=== PATIENT | male | born 1930 | race Caucasian/White ===

== ENCOUNTER → 2016-11-03 | Outpatient (CLI) | payer MEDICARE, BC ==
[2016-11-03 14:46] LABS: APPEARANCE,URINE SLIGHTLY-CLOUDY; BILIRUBIN,URINE NEGATIVE (NEGATIVE); GLUCOSE, URINE NEGATIVE (NEGATIVE); KETONES,URINE NEGATIVE (NEGATIVE); LEUKOCYTE ESTERASE,URINE NEGATIVE (NEGATIVE); NITRITE,URINE NEGATIVE (NEGATIVE); PROTEIN,URINE NEGATIVE (NEGATIVE); URINE SPECIFIC GRAVITY 1.005; UROBILINOGEN,URINE NEGATIVE mg/dL (<2.0)
[2016-11-04 14:20] LABS: MICROALBUMIN URINE <3.0 ug/mL (Not Estab.)
== END ==
LOC: OD 13:24
PROVIDERS: ATTEND Internal Medicine Cardiovascular Disease
DX: E11.9 Type 2 diabetes mellitus without complications (principal); N18.9 Chronic kidney disease, unspecified
CPT/HCPCS: 36415; 81001; 82043; 82570; 83036

== ENCOUNTER → 2017-03-30 | Outpatient (CLI) | payer MEDICARE, BC ==
[2017-03-30 15:05] LABS: ALANINE AMINOTRANSFERASE 17 U/L (21-72); ALBUMIN 4.4 g/dL (3.5-5.0); ALKALINE PHOSPHATASE 83 U/L (38-126); ANION GAP 10 (5-19); ASPARTATE AMINO TRANSFERASE 21 U/L (17-59); BILIRUBIN,TOTAL 0.7 mg/dL (0.2-1.3); BLOOD UREA NITROGEN 22 mg/dL (7-20); CALCIUM 9.5 mg/dL (8.4-10.2); CARBON DIOXIDE 27 mmol/L (22-30); CHLORIDE 101 mmol/L (98-107); GLUCOSE 104 mg/dL (75-110); POTASSIUM 4.7 mmol/L (3.6-5.0); SODIUM 138.2 mmol/L (137-145); TOTAL PROTEIN 7.1 g/dL (6.3-8.2)
== END ==
LOC: OD 14:09
PROVIDERS: ATTEND Internal Medicine Cardiovascular Disease
DX: I50.9 Heart failure, unspecified (principal); I48.91 Unspecified atrial fibrillation; E11.9 Type 2 diabetes mellitus without complications
CPT/HCPCS: 36415; 80048; 80076; 83036; 83735; 83880

== ENCOUNTER → 2017-05-27 | Outpatient (CLI) | payer MEDICARE, BC ==
[2017-05-27 16:40] LABS: ANION GAP 10 (5-19); BLOOD UREA NITROGEN 46 mg/dL (7-20); CALCIUM 9.8 mg/dL (8.4-10.2); CARBON DIOXIDE 32 mmol/L (22-30); CHLORIDE 96 mmol/L (98-107); GLUCOSE 101 mg/dL (75-110); POTASSIUM 5.2 mmol/L (3.6-5.0); SODIUM 137.8 mmol/L (137-145)
== END ==
LOC: OD 15:00
PROVIDERS: ATTEND Internal Medicine Cardiovascular Disease
DX: I50.22 Chronic systolic (congestive) heart failure (principal); R06.02 Shortness of breath; N18.3 Chronic kidney disease, stage 3 (moderate); I48.0 Paroxysmal atrial fibrillation
CPT/HCPCS: 36415; 80048; 83735; 83880

== ENCOUNTER → 2017-06-23 | Outpatient (CLI) | payer MEDICARE, BC ==
[2017-06-23 16:47] LABS: ANION GAP 11 (5-19); BLOOD UREA NITROGEN 33 mg/dL (7-20); CALCIUM 9.3 mg/dL (8.4-10.2); CARBON DIOXIDE 29 mmol/L (22-30); CHLORIDE 102 mmol/L (98-107); GLUCOSE 126 mg/dL (75-110); POTASSIUM 4.6 mmol/L (3.6-5.0); SODIUM 141.6 mmol/L (137-145)
== END ==
LOC: OD 15:08
PROVIDERS: ATTEND Internal Medicine Cardiovascular Disease
DX: I50.22 Chronic systolic (congestive) heart failure (principal); N18.3 Chronic kidney disease, stage 3 (moderate); R06.02 Shortness of breath
CPT/HCPCS: 36415; 80048; 83880

== ENCOUNTER → 2017-08-19 | Outpatient (CLI) | payer MEDICARE, BC ==
[2017-08-19 09:52] LABS: ANION GAP 11 (5-19); BLOOD UREA NITROGEN 27 mg/dL (7-20); CALCIUM 9.1 mg/dL (8.4-10.2); CARBON DIOXIDE 27 mmol/L (22-30); CHLORIDE 103 mmol/L (98-107); GLUCOSE 113 mg/dL (75-110); SODIUM 140.6 mmol/L (137-145)
== END ==
LOC: LAB 09:06
PROVIDERS: ATTEND Internal Medicine Cardiovascular Disease
DX: I50.22 Chronic systolic (congestive) heart failure (principal); R06.02 Shortness of breath; N18.3 Chronic kidney disease, stage 3 (moderate)
CPT/HCPCS: 36415; 80048; 83880

== ENCOUNTER → 2017-09-18 | Outpatient (CLI) | payer MEDICARE, BC ==
[2017-09-18 09:24] LABS: ALANINE AMINOTRANSFERASE 23 U/L (21-72); ALBUMIN 3.8 g/dL (3.5-5.0); ALKALINE PHOSPHATASE 74 U/L (38-126); ANION GAP 9 (5-19); ASPARTATE AMINO TRANSFERASE 22 U/L (17-59); BILIRUBIN,DIRECT 0.2 mg/dL (0.0-0.4); BILIRUBIN,TOTAL 0.8 mg/dL (0.2-1.3); BLOOD UREA NITROGEN 21 mg/dL (7-20); CALCIUM 9.3 mg/dL (8.4-10.2); CARBON DIOXIDE 27 mmol/L (22-30); CHLORIDE 104 mmol/L (98-107); CHOLESTEROL 138.76 mg/dL (0-200); GLUCOSE 114 mg/dL (75-110); POTASSIUM 4.9 mmol/L (3.6-5.0); SODIUM 139.8 mmol/L (137-145); TOTAL PROTEIN 6.8 g/dL (6.3-8.2); TRIGLYCERIDES 97 mg/dL (<150)
[2017-09-18 09:38] LABS: DIRECT LDL 51 mg/dL (<100)
== END ==
LOC: LAB 08:35
PROVIDERS: ATTEND Internal Medicine Cardiovascular Disease
DX: E11.29 Type 2 diabetes mellitus with other diabetic kidney complication (principal); N18.3 Chronic kidney disease, stage 3 (moderate); E78.00 Pure hypercholesterolemia, unspecified; E03.2 Hypothyroidism due to medicaments and other exogenous substances; R06.02 Shortness of breath; Z79.899 Other long term (current) drug therapy
CPT/HCPCS: 36415; 80048; 80061; 80076; 83036; 83880; 84443

== ENCOUNTER → 2017-11-02 | Outpatient (CLI) | payer MEDICARE, BC ==
[2017-11-02 12:00] LABS: ANION GAP 7 (5-19); BLOOD UREA NITROGEN 20 mg/dL (7-20); CALCIUM 9.4 mg/dL (8.4-10.2); CARBON DIOXIDE 30 mmol/L (22-30); CHLORIDE 101 mmol/L (98-107); GLUCOSE 120 mg/dL (75-110); POTASSIUM 4.8 mmol/L (3.6-5.0); SODIUM 138.1 mmol/L (137-145)
== END ==
LOC: LAB 11:35
PROVIDERS: ATTEND Internal Medicine Cardiovascular Disease
DX: I50.22 Chronic systolic (congestive) heart failure (principal); N18.3 Chronic kidney disease, stage 3 (moderate); R06.02 Shortness of breath
CPT/HCPCS: 36415; 80048; 83880

== ENCOUNTER → 2018-01-11 | Outpatient (CLI) | payer MEDICARE, BC ==
[2018-01-11 15:18] LABS: ALBUMIN 4.1 g/dL (3.5-5.0); ANION GAP 11 (5-19); BLOOD UREA NITROGEN 27 mg/dL (7-20); CALCIUM 9.4 mg/dL (8.4-10.2); CARBON DIOXIDE 30 mmol/L (22-30); CHLORIDE 96 mmol/L (98-107); GLUCOSE 174 mg/dL (75-110); PHOSPHORUS 3.5 mg/dL (2.5-4.5); POTASSIUM 4.7 mmol/L (3.6-5.0); SODIUM 137.2 mmol/L (137-145)
== END ==
LOC: LAB 14:32
PROVIDERS: ATTEND Internal Medicine Cardiovascular Disease
DX: I50.9 Heart failure, unspecified (principal); N18.9 Chronic kidney disease, unspecified; E11.9 Type 2 diabetes mellitus without complications
CPT/HCPCS: 36415; 80069; 83036; 83880

== ENCOUNTER → 2018-01-26 | Outpatient (CLI) | payer MEDICARE, BC ==
[2018-01-26 10:36] LABS: ALANINE AMINOTRANSFERASE 14 U/L (21-72); ALBUMIN 3.8 g/dL (3.5-5.0); ALKALINE PHOSPHATASE 71 U/L (38-126); ASPARTATE AMINO TRANSFERASE 19 U/L (17-59); BILIRUBIN,DIRECT 0.2 mg/dL (0.0-0.4); BILIRUBIN,TOTAL 0.9 mg/dL (0.2-1.3); TOTAL PROTEIN 6.7 g/dL (6.3-8.2)
[2018-01-26 10:52] LABS: FREE T4 (FREE THYROXINE) 1.85 ng/dL (0.78-2.19)
[2018-01-26 11:06] LABS: THYROID STIMULATING HORMONE 1.76 uIU/mL (0.47-4.68)
== END ==
LOC: LAB 09:45
PROVIDERS: ATTEND Internal Medicine Cardiovascular Disease
DX: I50.22 Chronic systolic (congestive) heart failure (principal); I48.91 Unspecified atrial fibrillation; Z79.899 Other long term (current) drug therapy; N18.3 Chronic kidney disease, stage 3 (moderate); E03.9 Hypothyroidism, unspecified; Z12.5 Encounter for screening for malignant neoplasm of prostate
CPT/HCPCS: 36415; 84439; 84443; 80076; G0103

== ENCOUNTER → 2018-07-19 | Outpatient (CLI) | payer MEDICARE, BC ==
[2018-07-19 12:04] LABS: ANION GAP 10 (5-19); BLOOD UREA NITROGEN 22 mg/dL (7-20); CALCIUM 9.7 mg/dL (8.4-10.2); CARBON DIOXIDE 29 mmol/L (22-30); CHLORIDE 101 mmol/L (98-107); GLUCOSE 124 mg/dL (75-110); POTASSIUM 5.1 mmol/L (3.6-5.0)
== END ==
LOC: LAB 11:20
PROVIDERS: ATTEND Internal Medicine Cardiovascular Disease
DX: E87.5 Hyperkalemia (principal)
CPT/HCPCS: 36415; 80048

== ENCOUNTER → 2018-09-01 | Outpatient (CLI) | payer MEDICARE, BC ==
[2018-09-01 09:50] LABS: ANION GAP 5 (5-19); BLOOD UREA NITROGEN 33 mg/dL (7-20); CALCIUM 9.2 mg/dL (8.4-10.2); CARBON DIOXIDE 29 mmol/L (22-30); CHLORIDE 103 mmol/L (98-107); GLUCOSE 113 mg/dL (75-110); POTASSIUM 4.9 mmol/L (3.6-5.0)
== END ==
LOC: LAB 09:01
PROVIDERS: ATTEND Internal Medicine Cardiovascular Disease
DX: I50.22 Chronic systolic (congestive) heart failure (principal); R06.02 Shortness of breath; E87.5 Hyperkalemia; N18.3 Chronic kidney disease, stage 3 (moderate); E03.2 Hypothyroidism due to medicaments and other exogenous substances
CPT/HCPCS: 36415; 80048; 83880; 84443

== ENCOUNTER → 2019-06-27 | Outpatient (CLI) | payer MEDICARE, BC ==
[2019-06-27 08:58] LABS: CHOLESTEROL 153.39 mg/dL (0-200); TRIGLYCERIDES 77 mg/dL (<150)
[2019-06-27 09:09] LABS: DIRECT LDL 75 mg/dL (<100)
[2019-06-27 12:44] LABS: HEMATOCRIT 39.7 % (37.9-51.0); HEMOGLOBIN 13.8 g/dL (13.5-17.0); MEAN CORPUSCULAR HEMOGLOBIN 35.8 pg (27.0-33.4); MEAN CORPUSCULAR HGB CONC 34.7 g/dL (32.0-36.0); MEAN CORPUSCULAR VOLUME 103 fl (80-97); PLATELET COUNT 144 10^3/uL (150-450); RED BLOOD COUNT 3.85 10^6/uL (4.35-5.55); RED CELL DISTRIBUTION WIDTH 13.6 % (11.5-14.0); WHITE BLOOD COUNT 4.6 10^3/uL (4.0-10.5)
[2019-06-27 12:51] LABS: ALBUMIN 3.9 g/dL (3.5-5.0); ALKALINE PHOSPHATASE 79 U/L (38-126); ANION GAP 6 (5-19); ASPARTATE AMINO TRANSFERASE 19 U/L (17-59); BLOOD UREA NITROGEN 30 mg/dL (7-20); CALCIUM 9.4 mg/dL (8.4-10.2); CARBON DIOXIDE 29 mmol/L (22-30); CHLORIDE 101 mmol/L (98-107); GLUCOSE 103 mg/dL (75-110); POTASSIUM 4.8 mmol/L (3.6-5.0); TOTAL PROTEIN 7.2 g/dL (6.3-8.2)
== END ==
LOC: OD 07:20
PROVIDERS: ATTEND Internal Medicine Cardiovascular Disease
DX: E03.2 Hypothyroidism due to medicaments and other exogenous substances (principal); I50.22 Chronic systolic (congestive) heart failure; E13.9 Other specified diabetes mellitus without complications; I25.10 Atherosclerotic heart disease of native coronary artery without angina pectoris
CPT/HCPCS: 36415; 80048; 80061; 80076; 83036; 83735; 83880; 84443; 85027

== ENCOUNTER → 2019-09-17 | Outpatient (CLI) | payer MEDICARE, BC ==
[2019-09-17 11:01] LABS: APPEARANCE,URINE CLEAR; BILIRUBIN,URINE NEGATIVE (NEGATIVE); COLOR,URINE YELLOW; GLUCOSE, URINE NEGATIVE (NEGATIVE); KETONES,URINE NEGATIVE (NEGATIVE); LEUKOCYTE ESTERASE,URINE NEGATIVE (NEGATIVE); NITRITE,URINE NEGATIVE (NEGATIVE); PROTEIN,URINE NEGATIVE (NEGATIVE); URINE SPECIFIC GRAVITY 1.013; UROBILINOGEN,URINE NEGATIVE mg/dL (<2.0)
[2019-09-17 11:09] LABS: HEMATOCRIT 40.5 % (37.9-51.0); HEMOGLOBIN 13.8 g/dL (13.5-17.0); MEAN CORPUSCULAR HEMOGLOBIN 35.5 pg (27.0-33.4); MEAN CORPUSCULAR HGB CONC 34.1 g/dL (32.0-36.0); MEAN CORPUSCULAR VOLUME 104 fl (80-97); PLATELET COUNT 136 10^3/uL (150-450); RED CELL DISTRIBUTION WIDTH 13.3 % (11.5-14.0); WHITE BLOOD COUNT 4.8 10^3/uL (4.0-10.5)
[2019-09-17 11:28] LABS: ALBUMIN 4.2 g/dL (3.5-5.0); ALKALINE PHOSPHATASE 75 U/L (38-126); ANION GAP 8 (5-19); ASPARTATE AMINO TRANSFERASE 22 U/L (17-59); BILIRUBIN,TOTAL 1.1 mg/dL (0.2-1.3); BLOOD UREA NITROGEN 26 mg/dL (7-20); CALCIUM 9.4 mg/dL (8.4-10.2); CARBON DIOXIDE 27 mmol/L (22-30); CHLORIDE 100 mmol/L (98-107); GLUCOSE 110 mg/dL (75-110); POTASSIUM 4.8 mmol/L (3.6-5.0); TOTAL PROTEIN 7.3 g/dL (6.3-8.2)
[2019-09-19 15:36] LABS: CHOLESTEROL 164.01 mg/dL (0-200); TRIGLYCERIDES 77 mg/dL (<150)
[2019-09-19 15:48] LABS: DIRECT LDL 71 mg/dL (<100)
== END ==
LOC: OD 09:26
PROVIDERS: ATTEND Internal Medicine Cardiovascular Disease
DX: E78.00 Pure hypercholesterolemia, unspecified (principal); I50.22 Chronic systolic (congestive) heart failure; I48.91 Unspecified atrial fibrillation; Z79.01 Long term (current) use of anticoagulants; Z79.899 Other long term (current) drug therapy
CPT/HCPCS: 36415; 80048; 80061; 80076; 81001; 83735; 83880; 84443; 85027; 85730

== ENCOUNTER → 2019-12-20 | Outpatient (CLI) | payer MEDICARE, BC ==
--- OUTSIDE RECORDS SUMMARY | 2019-12-20 15:16 | XMS REPORT ---
:1930 [facility] [address] [place] [id number] Care Team Providers Name Role Phone Susan CARRASCO Primary Care Physician Unavailable LEXIE KENT Attending Clinician Unavailable MEAGHAN WATTERS Attending Clinician Unavailable SUMA ROGERS Attending Clinician Unavailable JOSE G Attending Clinician Unavailable Allergies, Adverse Reactions, Alerts Allergy Name Allergy Status Severity Reaction(s) Onset Inactive Treat ing Comments Type Date Date Clinician Ondansetron Propensity Active Moderate Vomiting Hcl (Pf) to adverse 4-03 reactions 00:00: to drug 00 Melquiades Propensity Active Cough Inhibitors to adverse reactions to drug Carvedilol Propensity Active Severe Other (See Reaction to adverse Comments) - reactions weakne ss to drug Sotalol Propensity Active Other (See Re action to adverse Comments) - e xtreme reactions fatigu e to drug Midazolam Propensity Active Vomiting to adverse reactions to drug Medications Ordered Filled Start Stop Current Ordering Indication Dosage Frequency Signature Comments Components Medication Medication Date Date Medication? Clinician (SIG) Name Name levothyroxi No 50ug QD Take 1 ne 9-25 tablet (50 (SYNTHROID) 00:00: mcg total) 50 MCG 00 by mouth tablet once daily sacubitriL- No 1{tbl} Q12H Take 1 valsartan 8-04 tablet by (ENTRESTO) 00:00: mouth 24-26 mg 00 every 12 tablet (twelve) hours ENTRESTO 2019- 2020- No TAKE 1 24-26 mg 8-04 08-04 TABLET BY tablet 00:00: 00:00 MOUTH 00 :00 EVERY 12 HOURS eplerenone 2020- No 12.5mg [id number] Take 0.5 (INSPRA) 25 4-22 04-22 [id number] tablets MG tablet 00:00: 23:59 3W (12.5 mg 00 :00 total) by mouth every Thursday, Thursday, and Thursday ELIQUIS 5 2019- Yes TAKE 1 mg tablet 4-15 TABLET BY 00:00: MOUTH 00 EVERY 12 HOURS apixaban 2020- No 5mg Q12H Take 1 (ELIQUIS) 5 2-05 04-15 tablet (5 mg tablet 00:00: 00:00 mg total) 00 :00 by mouth every 12 (twelve) hours finasteride 2018-02 Yes [id number] One tab po (PROSCAR) 5 2-04 01 daily mg tablet 00:00: 00 metoprolol 2020- No 25mg QD Take 1 succinate 9-16 09-15 tablet (25 (TOPROL-XL) 00:00: 23:59 mg total) 25 MG XL 00 :00 by mouth tablet once daily sacubitril- 2020- No 1{tbl} Q12H Take 1 valsartan 7-19 08-04 tablet by (ENTRESTO) 00:00: 00:00 mouth 24-26 mg 00 :00 every 12 tablet (twelve) hours levothyroxi 2019- No Take 1 po ne 6-24 09-25 six days a (SYNTHROID, 00:00: 00:00 week only LEVOTHROID) 00 :00 50 MCG tablet eplerenone 2019- No 12.5mg QD Take 0.5 (INSPRA) 25 2-15 02-15 tablets MG tablet 00:00: 23:59 (12.5 mg 00 :00 total) by mouth once daily Aspirin Yes 81mg 28 14:09: 47 Voltaren Yes 1% Apply 4 1-28 gram(s) 4 11:58: times 08 daily PRN to affected area finasteride 2017-02 2019- No [id number] One tab po (PROSCAR) 5 1-21 12-04 01 daily mg tablet 00:00: 00:00 00 :00 levothyroxi 2019- No Take 1 ne 8- 03-19 pill 6 (SYNTHROID, 00:00: 00:00 days a LEVOTHROID) 00 :00 week and 75 MCG NONE on tablet Sundays on an empty stomach with a glass of water at least 30-60 minutes before breakfast. sacubitril- 2019- No 1{tbl} Q12H Take 1 valsartan 09-17 07-18 tablet by (ENTRESTO) 00:00: 00:00 mouth 24-26 mg 00 :00 every 12 tablet (twelve) hours. atorvastati Yes 20mg QD Take 20 mg n (LIPITOR) 4-20 by mouth 20 MG 00:00: nightly tablet 00 metoprolol 2018- No 50mg QD Take 50 mg succinate 05-15-16 by mouth (TOPROL-XL) 00:00: 00:00 every 50 MG XL 00 :00 morning. tablet AMIOdarone Yes 100mg QD Take 0.5 (PACERONE) 4-22 tablets 200 MG 00:00: (100 mg tablet 00 total) by mouth daily. LASIX 20 mg 2012-02 Yes 20mg QD Take 1 tablet 2-12 tablet (20 00:00: mg total) 00 by mouth daily. eplerenone 2012-02- No 25mg QD Take 1 (INSPRA) 25 2-03 06-13 tablet (25 MG tablet 00:00: 00:00 mg total) 00 :00 by mouth daily. metoprolol 2013- No 50mg QD Take 1 succinate 1-04 01-04 tablet (50 (TOPROL-XL) 00:00: 23:59 mg total) 50 MG XL 00 :00 by mouth tablet daily. atorvastati 2015- No 1{tbl} QD 1 tab by n (LIPITOR) 4-16 11-08 mouth 40 MG 00:00: 00:00 daily tablet 00 :00 ezetimibe 2015- No 1{tbl} QD 1 tab by (ZETIA) 10 4-16 11-08 mouth mg tablet 00:00: 00:00 daily 00 :00 aspirin 325 2018- No 1{tbl} QD 1 tab by MG EC 2-20 12-17 mouth tablet 00:00: 00:00 daily 00 :00 acarbose 2016- No 2{tbl} Q.96141101 2 tab by (PRECOSE) 2-14 06-14 [id number] mouth 3 25 MG 00:00: 00:00 3D times a tablet 00 :00 day amiodarone 2012-0 2014- No .5{tbl} QD 0.5 tab by (PACERONE) 03-25 04-22 mouth 200 MG 00:00: 00:00 daily tablet 00 :00 candesartan 2010-02- No 2mg QD Take 2 mg (ATACAND) 4 03-30-25 by mouth MG tablet 00:00: 00:00 every 00 :00 morning. LASIX 20 mg 2010-02- No 1{tbl} QD 1 tab by tablet 03-30- mouth 00:00: 00:00 daily 00 :00 ascorbic 2015- No 1{tbl} QD 1 tab by acid 09-10 11-08 mouth (VITAMIN C) 00:00: 00:00 daily 500 mg TbER 00 :00 multivitami 2007-02- No 1{capsu QD 1 cap by n capsule 0-20 14 le} mouth 00:00: 00:00 daily 00 :00 ergocalcife Yes 1{tbl} QD Take 1 rol, tablet by vitamin D2, mouth 2,000 unit every Tab morning. MULTIVITAMI Yes 1{tbl} QD Take 1 N ORAL tablet by mouth once daily. acarbose Yes 50mg Q.82560926 Take 50 mg (PRECOSE) [id number] by mouth 3 25 MG 3D (three) tablet times daily with meals. ascorbic Yes 500mg QD Take 500 acid, mg by vitamin C, mouth (VITAMIN C) nightly 500 mg TbER ezetimibe Yes 10mg QD Take 10 mg (ZETIA) 10 by mouth mg tablet nightly. perflutren No 4mL 4 mL, lipid Intravenou microsphere s, Once, s Thu10/14/19 (DEFINITY) at 1130, 1.5 mL in For 1 sodium dose, chloride Radiology< 0.9% 8.5 mL br>CDU injection Definity Administra tion Protocol Leoncio ch 10mL syringe containing 1.5mL Definity syringe and 8.5mL 0.9 preservati ve-free Sodium Chloride to extension tubing. Admi nistration of 1-2 mL amounts will proceed until the sonographe r obtains evaluable imaging or until maximum amount is administer ed. If necessary, a second diluted bolus of Definity may be administer ed 30 minutes after the first injection to prolong contrast enhancemen t. The maximum total dose should not exceed 20 mL in any one patient per study
Problems Condition Condition Condition Status Onset Resolution Last Treatin g Comments Name Details Category Date Date Treatment Clinician Date Encounter Encounter [id number] Active 2018-07-14 for for 07-14 11:53:40 adjustment adjustment 00:00: of cardiac of cardiac 00 resynchroni resynchroni zation zation therapy therapy defibrillat defibrillat or (RN TRANSITIONAL-D) or (RN TRANSITIONAL-D) Chronic Chronic [id number] Active 2019-05-02 Over view: systolic systolic 08-03 14:32:13 A. 20 14 congestive congestive 00:00: Pr o-BNP heart heart 00 766 B. failure failure 2014 Pro-BNP 1,054 C. 2015 Pro-BNP 1,319 D. 2017 Pro-BNP 2,164 - started Entreo E. 2018 Pro-BNP 1,900 F. 10/2018 Pro-BNP 1,229 Hypothyroid Hypothyroid [id number] Active 2016-08-04 ism due to ism due to 08-04 14:59:38 Barby's Barby's 00:00: thyroiditis thyroiditis 00 Elevated Elevated [id number] Active 2018-03-26 Ov erview: TSH TSH 03-17 19:21:59 7: 00:00: TSH 24.3 8 00 Chronic Chronic [id number] Inactiv 2015-022018-10-29 Over view: renal renal e 03-16 18:27:35 A. 2016 impairment, impairment, 00:00: Cr 1.4, stage 2 stage 2 00 GFR 48 B . (mild) (mild) 2017 Cr 1.1, GFR >60 C. 12/2017 Cr 1,2, GFR 58 D . 2018 Cr 1.4, GFR 48 CKD CKD [id number] Active 2015-022019-10-22 Over view: (chronic (chronic - 18:57:12 A. 20 17 kidney kidney 00:00: Cr 1.4, disease) disease) 00 GFR 48 B. stage 3, stage 3, 2018 C r GFR 30-59 GFR 30-59 1.1, GFR ml/min ml/min >60 C. 12/2017 Cr 1,2, GFR 58 D . 2019 Cr 1.4, GFR 48 Cancer of Cancer of [id number] Active 2015-022016-01-16 prostate prostate 1-14 14:46:04 00:00: 00 Incomplete Incomplete [id number] Active 2015-022015-12-24 bladder bladder 0-20 15:42:03 emptying emptying 00:00: 00 Nocturia Nocturia [id number] Active 2015-07-24 6- 13:18:45 00:00: 00 Small Small [id number] Active 2014-022019-10-22 Over view: airways airways 03-12 18:56:28 A. On disease disease 00:00: Amiodaro n 00 e for VT B. 01/15/20 1 3: PFT's : FVC 4.29 , FEV1 2.75, FEV1-FVC 64, TLC 6.54, VC 4.45, DLCO 18. 3 C. 01/15/20 1 3: CXR: Normal heart an d lungs D. 01/2014: PFT's: FVC 4.53 , FEV1 2.98, TL C 6.30, DLCO 17. 7 E. 01/2015: PFT's: FEV1 83% , MVV 100% , VCMAX 93%, LAURA O 74% F. 01/2016 PFTs: FEV1 81% , MVV 95%, VC 91%, DLCO 71% G. 01/2017 PFTs: FEV1 82% , MVV 87%, DLCO 69% H. 2018 PFTs: FEV1 84% , MVV 100% , DLCO 66% I. 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 2013-03-04 a of left a of left 03-04 22:04:51 eye eye 00:00: 00 Sensorineur Sensorineur [id number] Active 2012-08-27 al hearing al hearing 08-27 19:08:18 loss loss 00:00: 00 Cardiac Cardiac [id number] Active 2018-07-14 Over view: resynchroni resynchroni 03-19 11:53:17 Medtronic zation zation 00:00: Defibril l therapy therapy 00 ator defibrillat defibrillat CLARIA or (RN TRANSITIONAL-D) or (RN TRANSITIONAL-D) MR I RN TRANSITIONAL-D in place in place QUAD D F-1 [id number] S/N: [id number] H Date o f Implant: 05/13/19 1 9 CS Medtroni c PERFORMA LAV S-SHAPED 88CM [id number] S/N: [id number] V Date o f Implant: 05/13/19 1 9 RA Medtroni c 5076 CapSureF i x Novus MRI [id number] V right atrial lead implante d on 08/04/19 0 4 RV Medtroni c 6947 Sprint Quattro Secure [id number] 8 V right ventricu l ar lead implante d on 08/04/19 0 4 Potentia l loss of left ventricl e pacing due to software Issue. Interrog a tion wit h programm e r software update (SW034 Software Version 8.2) resolves issue Explante d 05/13/19 1 9 Medtroni c Deion MR I XT [id number] 6 H dual chamber ICD implante d on 12/26/15 Coronary Coronary [id number] Inactiv 2011-022017-11-28 Ov erview: artery artery e 16:11:05 a. 1989 : disease disease 00:00: AL with involving involving 00 card [place]ac [place] arrest. coronary coronary 75% LC X. artery of artery of Stat [place] post PTC A heart heart to LCX. EF 34% b y cath. b. 08/07/89 : PTCA to mid LAD. c. 08/28/02 : Exercise perfusio n scan (SHERRY Bryant v). Minimal ischemia inferoap i zenon wall only. Infarct multiple lopez. Nonspeci f ic ST T changes, no cruz e with exercise . Max HR 137. No chest pain. d. 08/31/03 : Cardiac cath. EF 25%. LM 25-50%. LAD 75%. LCX 95%. Status post Cypher stent to LCX. e. 09/10/05 : Nuclear stress test (Ovi kramer [place]). No ischemia to a max HR of 12 7 beats pe r minute. Stress ECG negative . Large fixed defect i n a large apex, inferior wall, an d inferose p jun wall consiste n t with infarct. f. 09/21/06 : Exercise Cardioli t e. No evidence of ischemia . Mild to severe infarct in multiple lopez. Post stress LVEF 42% with global L V hypokine s is. EKG negative adequate . g. 01/15 Echocard i ogram (Dr. Carrasco). Moderate global hypokine s is. EF estimate d 35-45% with global enlargem e nt. No pulmonar y hyperten s ion. Mil d MR. Trac e AR. h. 02/05/07 : Cardiac cath. EF 47%. Lef t main 20-50%. LAD 20-30%, distal LAD 90%. RCA 90%, 100%. LC X 20-30%. No interven t ion. i. 02/16: PET scan . Viabilit y in the high/low anterola t eral, high/low anterior , anteroap i zenon lopez, and inferose p jun and anterose p jun regions. Nonviabl e are high/low posterol a teral an d inferior region. Findings consiste n t with the angiogra m that shows mi d RCA occlusio n and distal LAD disease and otherwis e insignif i cant disease. Medical manageme n t recommen d ed. j. 03/28/09 : Persanti n e nuclea r stress. Mild zoe-inf a rct ischemia . Low anterola t eral. EF 34%. k. 07/19: Rest MUG A showing left ventricu l ar ejection fraction of 34% with normal right ventricu l ar function . l. 07/19: Pro BNP near normal (766). m . 11/25/09 : NSTEMI hospital i zed afte r presenti n g with nausea, vomiting (anginal equivale n t). n. : Cardiac cath. EF 39%. Total occlusio n of apica l LAD, likely infarct related artery. LM 40%, D2 50%, mid LCX 40%, patent distal stent an d 70% prox RCA. Medical therapy continue d . o. 11/26/09 : Echocard i ogram. E F 25%, mil d LVH. Grade II I restrict i ve filling pattern with diffuse hypocont r actility and akinesis . Mild MR/TR. apical/L V thrombus . Coumadin initiate d . p. 03/2011: Echocard i ogram by Dr. Carrasco showing severe left ventricu l ar enlargem e nt with EF estimate d at 25-30%, severe global hypokine s is, no L V thrombus noted, left atrial enlargem e nt. Righ t ventricu l ar function appears normal. Mild MR, no other findings suggesti v e of low disease. Q. 3 : ECHO: EF 35%, Moderate LVH, Grade I diastoli c dysfunct i on, mildly enlarged LA, trivial AR, Mild MR Ventricular Ventricular [id number] Active 2011-022018-07-14 Overview: tachycardia tachycardia 0-16 11:52:18 a. (paroxysmal (paroxysmal 00:00: 06/25/04: ) ) 00 AICD implante d - followed by [place] EP b. 01/15: Holter monitor (Dr. Carrasco). Several runs of nonsusta i nimesh ventricu l ar tachycar d ia, rate approxim a tely 130 . Somewher e between 5-12 beats. Multiple episodes in the 24-hour period. c. 10/21/07: 24 hour Holter monitor (SHERRY Bryant v ) SR, rate 40-113 bpm, average 69 bpm. Frequent Mobitz I AV block seen wit h pauses u p to 1.64 seconds terminat e d by ventricu l ar pacing. Frequent PVCs wit h one 6 beat run VT at 12 0 bpm terminat i ng with no symptoms . d. 12/11/08 : Elective replacem e nt Dual chamber ICD. e. Recurren t PVCs and ventricu l ar tachycar d ia on outside Holter. f. Initiate d on Amiodaro n e for suppress i on of arrhythm i as after patient failer t o tolerate Sotalol. g. 08/07/09 : A 24 lino r Holter monitor, sinus rhythm and pace d rhythm with PVC's an d trigemin y . 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 1988: thy thy 00:00: Cardiac 00 cath. followin g AL, EF 34% b. 08/15/00 : Echocard i ogram. E F 42%. Trivial AR. Moderate AR. LA 4.8 cm. Aortic calcific a tion. c. 07/13: Cardiac cath. EF 25% d. 09/10/05 : Echocard i ogram. E F 45%. Mil d LV dysfunct i on. Mild , Non stenotic , calcific aortic valvular disease. Mild MR. LA enlargem e nt measurin g 48 mm. Mild TR with no pulmonar y hyperten s ion. e. 02/05/07 : EF 47% b y cardiac cath. f. 07/2009: EF 34% b y MUGA. g. 11/26/09 : EF 25% b y Echo. h. 10/29/19 1 1: Rest MUGA 32% . i. Pro BNP slightly elevated 10/2010 a t 928. J. 03/2011: Echocard i ogram by Dr. Carrasco showing severe left ventricu l ar enlargem e nt with EF estimate d at 25-30%, severe global hypokine s is, no L V thrombus noted, left atrial enlargem e nt. Righ t ventricu l ar function appears normal. Mild MR, no other findings suggesti v e of low disease. K. 01/2012: Rest MUGA: LV EF: 30%; RVEF 41% L. 3 : ECHO: EF 35%, Moderate LVH, Grade I diastoli c dysfunct i on, mildly enlarged LA, trivial AR, Mild MR M. 3 : Pro BN P 709 N. 01/2015: ECHO: EF 35%, Grade 3- 4 restrict i on; Mild MR, Trivial AR O. 07/2015 Pro-BNP 1176 P. 2015 Echo: EF 35%, mil d LVH assymetr i c, evan l RV function , Mild MR, RSVP 31mmHg Q . 07/2016 Pro-BNP 2,280 - fell to 1904 wit h diuresis R. 2018 Pro-BNP 2,124 - Lasix + Eplereno n e - started Entresto S. 2018 Echo: EF 30%, mil d LVH, normal R V function , Mild MR, RSVP 26mmHg T . 05/2018 Upgrade to BiV with AIC D U. 9 Pro-BNP 1,229 Entresto , Lasix V. 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 Norm al fibrillatio fibrillatio 00:00: sinus n n 00 rhythm noted on prior AICD monitori n g, no recent episode of atria l fibrilla t ion. b. Coumadin used for LV thrombus (no longer present) C. 2018 Pacemake r monitori n g: No A Fib D. 2018 Pacemake r monitori n g: No A Fib E. 01/2019 Found on interrog a tion - Apixaban 5mg bid F. 0 DCCV: A. Flutter 1x 200J - AV paced Essential Essential [id number] Active 2011-022015-01-09 hypertensio hypertensio 0-16 15:35:58 n n 00:00: 00 Hyperlipide Hyperlipide [id number] Active 2011-022018-03-27 Overview: lexie, mixed lexie, mixed 0-16 18:39:39 a . 00:00: 10/02/08 00 NMR profile. TC 148, TG 138, HDL 45, LDL 78, LDL-P 1354 (borderl i ne high) , small LDL-P 96 4 (borderl i ne high) . LDL particle size 20. 6 (large pattern A). b. 08/07/09 : TC 142, TG 72, HDL 47 and LDL 80. c. 10/28/10 : TC 154, TG 167, HDL 52, LDL 69. d. 01/19/12 : TC 125, TG 86, HDL 53, LDL 55. E. 013: TC 121, Tg 84, HDL 46, LDL 58 on Atorvast a tin 40mgm/Ze t ia 10mgm F. 01/2014: TC 126, Tg 78, HDL 60, LDL 50 o n Atorvast a tin 40mg m daily G. 12/2014: TC 116, Tg 80, HDL 52, LDL 48 o n Zetia an d Atorvast a tin 40mg H. 2016 TC 129, TG 109, HDL 53, LDL 54 - Lipitor 40mg + Zetia 10mg I. 2017 TC 138, TG 111, HDL 56, LDL 60 - Lipitor 40mg + Zetia 10mg Diabetes Diabetes [id number] Active 2011-022018-03-27 Ov erview: mellitus mellitus 0-16 18:40:13 a. type 2, type 2, 00:00: 05/31/07 : controlled controlled 00 Hb A1c 6.2%. b. 08/06/09 : Hb A1c 6.0%. c. 10/28/10 : Hb A1c 6.1%. d. 07/21/11 : Hb A1c 6.2 E. 12/17/19 1 3; HbA1C : 6.0 F. 01/2014: HgbA1C 6.1% G. 07/2014: HgbA1C 6.2% H. 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 1989 : disease disease 00:00: AL with involving involving 00 card [place]ac [place] arrest. coronary coronary 75% LC X. artery of artery of Stat [place] post PTC A heart heart to LCX. EF 34% b y cath. b. 08/07/89 : PTCA to mid LAD. c. 08/28/02 : Exercise perfusio n scan (SHERRY Bryant v). Minimal ischemia inferoap i zenon wall only. Infarct multiple lopez. Nonspeci f ic ST T changes, no cruz e with exercise . Max HR 137. No chest pain. d. 08/31/03 : Cardiac cath. EF 25%. LM 25-50%. LAD 75%. LCX 95%. Status post Cypher stent to LCX. e. 09/10/05 : Nuclear stress test (SHERRY Bryant v). No ischemia to a max HR of 12 7 beats pe r minute. Stress ECG negative . Large fixed defect i n a large apex, inferior wall, an d inferose p jun wall consiste n t with infarct. f. 09/21/06 : Exercise Cardioli t e. No evidence of ischemia . Mild to severe infarct in multiple lopez. Post stress LVEF 42% with global L V hypokine s is. EKG negative adequate . g. 01/15 Echocard i ogram (Dr. Carrasco). Moderate global hypokine s is. EF estimate d 35-45% with global enlargem e nt. No pulmonar y hyperten s ion. Mil d MR. Trac e AR. h. 02/05/07 : Cardiac cath. EF 47%. Lef t main 20-50%. LAD 20-30%, distal LAD 90%. RCA 90%, 100%. LC X 20-30%. No interven t ion. i. 02/16: PET scan . Viabilit y in the high/low anterola t eral, high/low anterior , anteroap i zenon lopez, and inferose p jun and anterose p jun regions. Nonviabl e are high/low posterol a teral an d inferior region. Findings consiste n t with the angiogra m that shows mi d RCA occlusio n and distal LAD disease and otherwis e insignif i cant disease. Medical manageme n t recommen d ed. j. 03/28/09 : Persanti n e nuclea r stress. Mild zoe-inf a rct ischemia . Low anterola t eral. EF 34%. k. 07/19: Rest MUG A showing left ventricu l ar ejection fraction of 34% with normal right ventricu l ar function . l. 07/19: Pro BNP near normal (766). m . 11/25/09 : TEAL hospital i zed afte r presenti n g with nausea, vomiting (anginal equivale n t). n. : Cardiac cath. EF 39%. Total occlusio n of apica l LAD, likely infarct related artery. LM 40%, D2 50%, mid LCX 40%, patent distal stent an d 70% prox RCA. Medical therapy continue d . o. 11/26/09 : Echocard i ogram. E F 25%, mil d LVH. Grade II I restrict i ve filling pattern with diffuse hypocont r actility and akinesis . Mild MR/TR. apical/L V thrombus . Coumadin initiate d . p. 03/2011: Echocard i ogram by Dr. Carrasco showing severe left ventricu l ar enlargem e nt with EF estimate d at 25-30%, severe global hypokine s is, no L V thrombus noted, left atrial enlargem e nt. Righ t ventricu l ar function appears normal. Mild MR, no other findings suggesti v e of low disease. Q. 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 2012-08-16 macular macular 14:18:23 degeneratio degeneratio n of n of retina, retina, left eye left eye NAION NAION [id number] Active 2012-07-24 (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) , right eye , right eye Balanitis Balanitis [id number] Resolve 2015-022016-01-16 d 02-22 00:00:00 00:00: 00 Lower Lower [id number] Resolve 2015-022016-01-16 urinary urinary d 1-14 00:00:00 tract tract 00:00: symptoms symptoms 00 (LUTS) (LUTS) Abnormal Abnormal [id number] Resolve 2015-022016-01-16 PSA PSA d 0-25 00:00:00 00:00: 00 Increased Increased [id number] Resolve 2015-022016-01-16 frequency frequency d 0-20 00:00:00 of of 00:00: urination urination 00 OAB OAB [id number] Resolve 2016-01-16 (overactive (overactive d 1-28 00:00:00 bladder) bladder) 00:00: 00 SNHL SNHL [id number] Resolve 2015-12-25 (sensorineu (sensorineu d 1-27 00:00:00 ral hearing ral hearing 00:00: loss) loss) 00 History of History of [id number] Resolve 2004-022012-01-19 fractured fractured d 0-16 00:00:00 kneecap kneecap 00:00: 00 Procedures Procedure Date / Time Performed Performing Clinician Clarisa muñoz COMPREHENSIVE METABOLIC PANEL (CMP) 2019-10-20 12:27:00 Octavio Kent LIPID PANEL W/REFLEX DIRECT LOW 2019-10-20 12:27:00 Nunu Kent DENSITY LIPOPROTEIN (LDL) CHOLESTEROL HEMOGLOBIN A1C 2019-10-20 12:27:00 Nunu Kent PRO-BRAIN NATRIURETIC PEPTIDE, 2019-10-20 12:27:00 Nunu Kent N-TERMINAL (NT-PRO-BNP) OCT GLAUCOMA - HE[place]ELBERG - OU - 2019-10-14 12:38:56 Quincy Watters an Meaghan BOTH EYES ECHOCARDIOGRAM 2D COMPLETE WITH 2019-10-14 11:20:00 Nunu Kent CONTRAST [id number] 2019-10-14 08:59:46 Provider, On-File CARBON MONOXIDE DIFFUSING CAPACITY 2019-10-14 08:40:50 Moe Kent LUNG VOLUMES 2019-10-14 08:40:50 Nunu Kent [id number] 2019-10-14 08:40:50 Nunu Kent FLOW VOLUME LOOP 2019-10-14 08:40:50 Nunu Kent Results Test Description Test Time Test Comments Text Results Atomic Results Result Comments Hemoglobin A1C 2019-10-21 04:07:00 Test Item Value Reference Range Comments Hemoglobin A1C (test code = 4548-4) 6.2 % <6.5 Average Blood Glucose (Calculated From HgBA1c Level) (test code = 130 mg/dL 10620-6) VICK (test code = VICK) Comprehensive Metabolic Panel (CMP)2019-10-20 15:56:00 Test Item Value Reference Range Comments Sodium (test code = 2951-2) 137 mmol/L 135-145 Potassium (test code = 2823-3) 4.7 mmol/L 3.5-5 Chloride (test code = 2075-0) 101 mmol/L 98-108 Carbon Dioxide (CO2) (test 26 mmol/L 21-30 code = 2027-9) Urea Nitrogen (BUN) (test code 24 mg/dL 7-20 = 3094-0) Creatinine (test code = 1.2 mg/dL 0.6-1.3 2160-0) Glucose (test code = 2345-7) 79 mg/dL 70-140 Int erpretive Data: Above is the NONFASTING r eference range. Below are the FASTING reference ranges : NORMAL: 70-99 mg/dL PREDIABETES: 100 -125 mg/dL DIABETES: > 125 mg/dL Calcium (test code = 48701-0) 9.3 mg/dL 8.7-10.2 AST (Aspartate 16 U/L 15-41 Aminotransferase) (test code = 1920-8) ALT (Alanine Aminotransferase) 12 U/L 17-63 (test code = 1742-6) Bilirubin, Total (test code = 1.3 mg/dL 0.4-1.5 1974-2) Alk Phos (Alkaline 56 U/L 24-110 Phosphatase) (test code = 6768-6) Albumin (test code = 1751-7) 3.7 g/dL 3.5-4.8 Protein, Total (test code = 6.6 g/dL 6.2-8.1 2885-2) Anion Gap (test code = 10 mmol/L 3-12 88518-4) BUN/CREA Ratio (test code = 20 6-27 76867044) Glomerular Filtration Rate 54 mL/min/1.73sq m Inter pretive Ranges eGFR (eGFR) (test code = 24933-6) (C KD-EPI): eGFR: > 60 mL/min/1.73 s q m - Normal eGFR: 30 - 59 mL/min/1.73 sq m - Moderately Decre ased eGFR: 15 - 29 mL/min/1.73 sq m - Severely Decreased eGFR: < 15 mL/min/1.73 sq m - Kidney Failure Note: Th cj GFR calculations do not apply in acute situations when GFR is changing rapidly or in patients on dial ysis. Lab Interpretation (test code Abnormal = 59051-8) Lipid Panel W/Reflex Direct Low Density Lipoprotein (LDL) [id number] 15:56:00 Test Item Value Reference Range Comments Cholesterol, Total (test code 152 mg/dL Th e significance of total = 2093-3) cholesterol depe nds on the values of indivi dual components inclu ding HDL, LDL, non-HDL, and tri glycerides. LDL Calculated (test code = 75 mg/dL <190 <70 mg/dL Desired 47877-4) target for prior heart disease, stroke, and those at high-risk. Even lower levels may be recommend ed to decrease risk of heart at tack and stroke. 70-159 m g/dL Comprehensive ca rdiovascular risk assessment is recommended. Sta tin therapy may be advised b ased on risk factors. 160-189 mg/dL Moderately rajesh vated LDL level. Statin th erapy recommended if o ther risk factors present. >=190 mg/dL Severely el evated LDL level. High long -term risk of heart disease an d stroke. High-intensity s tatin therapy recommended for most people. Consider special ist referral. *A healthy t and exercise are recommended for all to reduce heart dis ease risk. Statin choice sh ould be based on patient prefe rence after patient-provider discussions. Ref: 2018 ACC /AHA Guideline HDL (test code = 2085-9) 60 mg/dL People with low HDL levels (see below) are at increased risk of heart di sease: <50 mg/dL for Women <40 mg/dL for Men Triglyceride (test code = 86 mg/dL <500 <150 m g/dL Normal 2571-8) 150-499 mg/dL High Triglycerides. R isk of heart disease may be i ncreased. Address reversib le causes (eg sugar in foods a nd beverages, alcohol, and ian betes control). Medica tion may be appropriate base d on other clinical factors . >=500 mg/dL Very High Triglycerides. Risk of heart di sease and pancreatitis inc reased. Address reversib le causes as above. Medicatio n to lower triglycerides us ually advised. *Ranges provided for adults, pediatric guidel hui vary. Pro-Brain Natriuretic peptide, N-Terminal (NT-pro-BNP)2019-10-20 15:43:00 Test Item Value Reference Range Comments Pro-Brain Natriuretic Peptide, N-terminal 2412 pg/mL <=850 (NT-Pro-BNP) (test code = 26900769) Lab Interpretation (test code = 92341-3) Abnormal Pulmonary Function [id number] 16:52:02 Test Item Value Reference Range Comments FEV1 Pre (test code = 9043474655) 2.56 L FEV1/FVC Pre (test code = 7715724446) 64.87 % FEV1/SVC Pre (test code = 7033666412) 61.44 % MVV Pre (test code = 5174672535) 93 L/min FVC Pre (test code = 2477098464) 3.95 L PEF Pre (test code = 4274432943) 7.43 L/s OZV27-11% Pre (test code = 6753020299) 1.17 L/s DLCO Pre (test code = 1928214275) 15.21 ml/(min*mmHg) BHT Pre (test code = 8172278752) 10.49 sec VA Pre (test code = 2682477697) 5.49 L IVC Pre (test code = 6900293991) 3.23 L ERV Pre (test code = 3567826040) 0.73 L FRC N2 Pre (test code = 4305629226) 2.44 L RV Pre (test code = 4120065681) 1.21 L TLC Pre (test code = 4001455564) 5.37 L VC Pre (test code = 4227326355) 4.17 L IC Pre (test code = 3842000094) 2.93 L FVC Pred (test code = 2230836844) 4.29 FVC %Pre Pred (test code = 0202511398) 92 % FEV1 Pred (test code = 0706206116) 3.14 FEV1 %Pre Pred (test code = 4033388764) 82 % FEV1/FVC Pred (test code = 4413869600) 74 FEV1/FVC %Pre Pred (test code = 1651370930) 88 % FGQ43-38% Pred (test code = 0719627927) 2.5 LZH07-72% %Pre Pred (test code = 1482834141) 47 % PEF Pred (test code = 1076447298) 7.91 PEF %Pre Pred (test code = 6641139392) 94 % MVV Pred (test code = 9081878456) 110 MVV %Pre Pred (test code = 8052866033) 85 % TLC Pred (test code = 9169892273) 7.26 TLC %Pre Pred (test code = 4895700242) 74 % VC Pred (test code = 9818340132) 4.29 VC %Pre Pred (test code = 7767830677) 97 % RV Pred (test code = 1848513338) 2.85 RV %Pre Pred (test code = 9665644834) 42 % IC Pred (test code = 7965239219) 2.87 IC %Pre Pred (test code = 2666049279) 102 % ERV Pred (test code = 1826143177) 1.42 ERV %Pre Pred (test code = 7746970986) 51 % DLCO Pred (test code = 5667151243) 22.28 DLCO %Pre Pred (test code = 3150766138) 68 % OCT Glaucoma - [place] - OU - Both [id number] 12:38:56Right EyeReliability was good. Left EyeReliability was good.Echo complete with [id number] 11:56:20 Test Item Value Reference Range Comments LV Ejection Fraction (%) (test code = 51130394821) 25 % Right Ventricle Systolic Pressure (mmHg) (test code 33 mmHg = 678144460151) Left Atrium Diameter (cm) (test code = 59855929635) 4.5 cm LV End Diastolic Diameter (cm) (test code = 5.4 cm 63867449518) LV End Systolic Diameter (cm) (test code = 4.8 cm 90245954844) LV Septum Wall Thickness (cm) (test code = 1.3 cm 77340267971) LV Posterior Wall Thickness (cm) (test code = 1.2 cm 35594728386) Tricuspid Valve Regurgitation Grade (test code = mild 1688338256) Tricuspid Valve Regurgitation Max Velocity (m/s) 2.5 m/s (test code = 56744356856) Mitral Valve Regurgitation Grade (test code = moderate 3380354349) Mitral Valve Stenosis Grade (test code = none 2445514983) Aortic Valve Regurgitation Grade (test code = trivial 3306257166) Aortic Valve Stenosis Grade (test code = none 6997785290) VICK (test code = VICK) PXN (test code = PXN) Echo complete with [id number] 11:56:20 Test Item Value Reference Range Comments LV Ejection Fraction (%) (test code = 64304791949) 25 % Right Ventricle Systolic Pressure (mmHg) (test code 33 mmHg = 171824894406) Left Atrium Diameter (cm) (test code = 06995356825) 4.5 cm LV End Diastolic Diameter (cm) (test code = 5.4 cm 12376891036) LV End Systolic Diameter (cm) (test code = 4.8 cm 37141526474) LV Septum Wall Thickness (cm) (test code = 1.3 cm 85387675182) LV Posterior Wall Thickness (cm) (test code = 1.2 cm 82825701686) Tricuspid Valve Regurgitation Grade (test code = mild 9035598481) Tricuspid Valve Regurgitation Max Velocity (m/s) 2.5 m/s (test code = 07697665087) Mitral Valve Regurgitation Grade (test code = moderate 0403931135) Mitral Valve Stenosis Grade (test code = none 7492167598) Aortic Valve Regurgitation Grade (test code = trivial 4414882247) Aortic Valve Stenosis Grade (test code = none 2011633268) VICK (test code = VICK) PXN (test code = PXN) PULMONARY FUNCTION [id number] 08:59:46Ordered by an unspecified provider. Assessments Condition Name Status Diagnosis Date Treating Clinici an Contusion of left knee, initial Active 2018-03-08 11:45 :00 encounter Has influenza vaccination at home Active 2018-03-08 11: 22:32 History of pneumococcal vaccination Active 2018-03-08 1 1:22:29 Chronic renal impairment, stage 2 Unknown (mild) Controlled type 2 diabetes mellitus Unknown with complication, without long-term current use of insulin ([facility]) Small airways disease Unknown Chronic systolic congestive heart Unknown failure ([facility]) Coronary artery disease involving Unknown [place] coronary artery of [place] heart without angina pectoris Hyperlipidemia, mixed Unknown Ischemic cardiomyopathy Unknown Chronic renal impairment, stage 2 Unknown (mild) Controlled type 2 diabetes mellitus Unknown with complication, without long-term current use of insulin ([facility]) Small airways disease Unknown Chronic systolic congestive heart Unknown failure ([facility]) Coronary artery disease involving Unknown [place] coronary artery of [place] heart without angina pectoris Hyperlipidemia, mixed Unknown Ischemic cardiomyopathy Unknown Chronic renal impairment, stage 2 Unknown (mild) Controlled type 2 diabetes mellitus Unknown with complication, without long-term current use of insulin ([facility]) Small airways disease Unknown Coronary artery disease involving Unknown [place] coronary artery of [place] heart without angina pectoris Ventricular tachycardia (paroxysmal) Unknown ([facility]) Ischemic cardiomyopathy Unknown Paroxysmal atrial fibrillation Unknown ([facility]) Essential hypertension Unknown Hyperlipidemia, mixed Unknown Chronic systolic congestive heart Unknown failure ([facility]) Controlled type 2 diabetes mellitus Unknown with complication, without long-term current use of insulin ([facility]) Chronic renal impairment, stage 2 Unknown (mild) Hyperlipidemia, mixed Unknown Chronic systolic congestive heart Unknown failure ([facility]) SOB (shortness of breath) Unknown OAG (open angle glaucoma) suspect, low Unknown risk, bilateral Cataract, nuclear sclerotic senile, Unknown right Chronic systolic congestive heart Unknown failure ([facility]) Coronary artery disease involving Unknown [place] coronary artery of [place] heart without angina pectoris Hyperlipidemia, mixed Unknown Ischemic cardiomyopathy Unknown Encounters Start End Encounter Admission Attending Care Care Encounter Date/Time Date/Time Type Type Clinicians Facility Department ID 2019-11-04 2019-11-04 Outpatient MIYA MIYA [id number] 00:00:00 00:00:00 2019-11-04 2019-11-04 [id number] 00:00:00 00:00:00 2019-10-20 2019-10-20 [facility] [id number] 10:52:56 10:52:56 2019-10-14 2019-10-14 Outpatient ZEINA WATTERS [id number] 11:46:43 12:44:20 DANA 2019-10-14 2019-10-14 Outpatient NUNU KENT [facility] [id number] 09:46:42 09:46:42 2019-10-14 2019-10-14 Outpatient NUNU KENT [id number] 08:40:49 08:40:49 2019-10-14 2019-10-14 Outpatient [facility] [id number] 00:00:00 00:00:00 2019-09-26 2019-09-26 Outpatient ZEINA ROGERS [facility] [id number] 09:35:07 09:35:07 JACOBY 2019-09-14 2019-09-14 Outpatient [facility] [id number] 00:00:00 00:00:00 2019-09-13 2019-09-13 Outpatient [facility] [id number] 00:00:00 00:00:00 2019-09-12 2019-09-12 Outpatient [facility] [id number] 00:00:00 00:00:00 2019-06-24 2019-06-24 Outpatient [facility] [id number] 00:00:00 00:00:00 2019-05-31 2019-05-31 Outpatient [facility] [id number] 00:00:00 00:00:00 2019 2019 Outpatient [facility] [id number] 00:00:00 00:00:00 2018-03-26 2018-03-26 Outpatient [facility] [id number] 00:00:00 00:00:00 2018-03-08 2018-03-08 Contusion HASTY, [facility] [id number] 11:45:00 11:45:00 of left JUSTINER [id number] knee, [id number] initial [id number] encounter (S80.02XA ICD-10-CM) 2013-01-20 2013-01-20 Outpatient [facility] [id number] 00:00:00 00:00:00 Immunizations Ordered Immunization Filled Immunization Date Status Commen ts Refusal Reason Name Name Influenza, IM 2018-11-05 Completed unspecified 00:00:00 Influenza IIV3, IM 2017-11-11 Completed High Dose 00:00:00 Influenza, IM 2015-11-06 Completed unspecified 00:00:00 Influenza TIV (IM) 2014-11-05 Completed 00:00:00 Plan of Treatment Planned Activity Planned Date Details Comments Future Scheduled Test [code = ] Future Scheduled Test [code = ] Future Scheduled Test [code = ] Future Scheduled Test [code = ] Future Scheduled Test [code = ] Future Scheduled Test [code = ] Future Scheduled Test [code = ] Future Scheduled Test [code = ] Future Scheduled Test [code = ] Future Scheduled Test [code = ] Future Scheduled Test [code = ] Future Scheduled Test [code = ] Future Scheduled Test [code = ] Future Scheduled Test [code = ] Future Scheduled Test [code = ] Future Scheduled Test [code = ] Future Scheduled Test [code = ] Future Scheduled Test [code = ] Future Appointment 2020-04-23 10:20:00 Future Appointment 2020-02-07 11:00:00 Rosalind Doyle MD, [address] [facility]; Clinic [address], [place] [address] Future Appointment 2020-01-11 13:00:00 Jayden Campa MD, [address] [facility], [place] [address] Future Appointment 2020-01-11 10:30:00 Dana Watters MD, [address] [facility], [place] [address] Future Appointment 2020-01-10 11:20:00 Kirill Patel MD, [address] [facility]; Clinic 2F/2G; [facility] [address] , [place] [address] Future Appointment 2020-01-09 09:45:00 Bindu Botello MD, [address] [facility] [place] [address] Social History Social Habit Start Date Stop Date Comments Exposure to SARS-CoV-2 (event) History SDOH Alcohol Frequency 2019-10-20 00:00:00 2019-10-20 00 :00:00 History SDOH Alcohol Std Drinks 2019-10-20 00:00:00 2019-10-20 0 0:00:00 History SDOH Alcohol Binge 2019-10-20 00:00:00 2019-10-20 00:00: 00 Alcohol intake 2019-05-02 00:00:00 2019-05-02 00:00:00 Tobacco use and exposure 2019-05-02 00:00:00 2019-05-02 00:00:00 Alcohol Comment 2016-01-14 00:00:00 2016-01-14 00:00:00 Smoking Status Start Date Stop Date Never smoker 2019-05-02 00:00:00 Vital Signs Vital Name Observation Time Observation Value Comments Systolic blood pressure 2019-10-20 11:28:00 102 mm[Hg] Diastolic blood pressure 2019-10-20 11:28:00 64 mm[Hg] Heart rate 2019-10-20 11:28:00 71 /min Body temperature 2019-10-20 11:28:00 36.17 Nay Respiratory rate 2019-10-20 11:28:00 16 /min Body height 2019-10-20 11:28:00 180.3 cm Body weight 2019-10-20 11:28:00 71.804 kg BMI 2019-10-20 11:28:00 22.08 kg/m2 Oxygen saturation in Arterial blood by 2019-10-20 11:28:00 99 % Pulse oximetry height 2018-03-08 14:09:00 72 [in_us] weight 2018-03-08 14:09:00 162 [lb_av] bmi 2018-03-08 14:09:00 22 kg/m?
[2019-12-20 16:18] LABS: APPEARANCE,URINE CLEAR; BILIRUBIN,URINE NEGATIVE (NEGATIVE); COLOR,URINE YELLOW; GLUCOSE, URINE NEGATIVE (NEGATIVE); KETONES,URINE NEGATIVE (NEGATIVE); LEUKOCYTE ESTERASE,URINE NEGATIVE (NEGATIVE); NITRITE,URINE NEGATIVE (NEGATIVE); PROTEIN,URINE NEGATIVE (NEGATIVE); URINE SPECIFIC GRAVITY 1.019; UROBILINOGEN,URINE NEGATIVE mg/dL (<2.0)
[2019-12-20 16:19] LABS: HEMATOCRIT 37.6 % (37.9-51.0); HEMOGLOBIN 13.2 g/dL (13.5-17.0); MEAN CORPUSCULAR HEMOGLOBIN 36.1 pg (27.0-33.4); MEAN CORPUSCULAR HGB CONC 34.9 g/dL (32.0-36.0); MEAN CORPUSCULAR VOLUME 104 fl (80-97); PLATELET COUNT 143 10^3/uL (150-450); RED BLOOD COUNT 3.64 10^6/uL (4.35-5.55); RED CELL DISTRIBUTION WIDTH 13.3 % (11.5-14.0); WHITE BLOOD COUNT 4.4 10^3/uL (4.0-10.5)
[2019-12-20 16:40] LABS: ALBUMIN 4.3 g/dL (3.5-5.0); ALKALINE PHOSPHATASE 74 U/L (38-126); ANION GAP 9 (5-19); ASPARTATE AMINO TRANSFERASE 20 U/L (17-59); BILIRUBIN,TOTAL 1.1 mg/dL (0.2-1.3); BLOOD UREA NITROGEN 34 mg/dL (7-20); CALCIUM 9.7 mg/dL (8.4-10.2); CARBON DIOXIDE 27 mmol/L (22-30); CHLORIDE 100 mmol/L (98-107); GLUCOSE 92 mg/dL (75-110); POTASSIUM 4.8 mmol/L (3.6-5.0); TOTAL PROTEIN 7.1 g/dL (6.3-8.2)
[2019-12-20 17:09] LABS: PROSTATE SPECIFIC ANTIGEN < 0.060 ng/mL (<4.00)
[2019-12-21 09:07] LABS: CHOLESTEROL 168.19 mg/dL (0-200); TRIGLYCERIDES 101 mg/dL (<150)
[2019-12-21 09:17] LABS: DIRECT LDL 70 mg/dL (<100)
== END ==
LOC: OD 15:12
PROVIDERS: ATTEND Internal Medicine Cardiovascular Disease
DX: I48.91 Unspecified atrial fibrillation (principal); Z79.01 Long term (current) use of anticoagulants; Z79.899 Other long term (current) drug therapy; E13.9 Other specified diabetes mellitus without complications; E78.00 Pure hypercholesterolemia, unspecified; C61 Malignant neoplasm of prostate; I50.22 Chronic systolic (congestive) heart failure
CPT/HCPCS: 36415; 80048; 80061; 80076; 81001; 82043; 82570; 83036; 83735; 83880; 84153; 84443; 85027; 85730